=== PATIENT | male | born 1950 | race Caucasian/White ===

== ENCOUNTER → 2022-09-12 14:01 | Outpatient (REF) | payer MEDICARE, SELFPAY ==
--- NOTE | 2022-09-12 14:11 | CA_ITS ---
Transthoracic Echocardiogram Patient (Last, First, Middle): Parminder Man, Gender: Male Date of : 1950 Age: 71 Procedure Date: 09/12/2022 Procedure Type: Transthoracic Echocardiogram Location: OP Height: 180.34 cm Weight: 127.01 kg BSA: 2.43 m2 Heart Rate: bpm BP: 134 / 84 mmHg Strategy Planning Consultant: Referring MD: Adid Main MD Symptoms: I10 PRIMARY HTN Study Quality: Fair ECG Rhythm: Sinus Conclusions: - Normal left ventricular size and systolic function. There is severely increased left ventricular wall thickness. The visually estimated ejection fraction is between 55-60%. - Normal right ventricular cavity size and systolic function. 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 Findings Left Ventricle Normal left ventricular size and systolic function. There is severely increased left ventricular wall thickness. The visually estimated ejection fraction is between 55-60%. There is no evidence of regional wall motion abnormalities. Diastolic function is normal for age. Right Ventricle Normal right ventricular cavity size and systolic function. Atria Both atria are normal in size. Aortic Valve There is mild calcification of the aortic valve. There is mild aortic valve stenosis. There is no aortic valve regurgitation. Mitral Valve The mitral valve appears normal. There is no mitral valve regurgitation. There is no mitral valve stenosis. Pulmonic Valve The pulmonic valve is likely normal. Tricuspid Valve Normal tricuspid valve structure. There is trace tricuspid valve regurgitation. Normal right atrial pressure. There is no evidence of pulmonary hypertension. Great Vessels There is mild dilatation of the ascending aorta measuring 4.00 cm. The visualized portions of the pulmonary artery and branches are normal. Venous The inferior vena cava is normal in size and collapses greater than 50% with inspiration. Pericardium/Pleural There is no evidence of pericardial effusion. Prior Study Comparison No prior study available for comparison. Measurements 2D Linear Measurements IVSd: 2.02 0.6-0.9/0.6-1.0 cm LVIDd: 5.09 3.9-5.3/4.2-5.9 cm LVIDd Index: 2.09 2.4-3.2/2.2-3.1 cm/m2 LVIDs: 3.25 2.0-3.6 cm LVPWd: 2.08 0.7-1.1 cm Ao Root: 3.90 2.1-3.5 cm LA Diam: 3.00 2.7-3.8/3.0-4.0 cm LAIDs Index: 1.23 1.5-2.3 cm/m2 LV Mass: 670.05 67-162/88-224 g LV Mass Index: 275.74 43-95/49-115 g/m2 LVOT Diam: 2.30 3.0+(-)1.3 cm Mitral Valve MV Pk E: 0.49 MV PK A: 1.01 MV Decel Time: 142.00 E/A: 0.50 E'Lateral: 4.24 E'Medial: 5.33 E/E' Med: 9.20 E/E' Lat: 11.60 PHT: 42.00 MVA PHT: 5.24 Decel Laurel: 3.46 Aortic Valve AoV Pk Stepan: 2.77 AoV Mn Stepan: 1.74 AoV VTI: 0.52 AoV Pk Grad: 31.00 Aov Mn Grad: 15.00 MARGARITA Cont.VTI: 1.40 LVOT LVOT Pk Stepan: 0.88 LVOT Mn Stepan: 0.61 LVOT VTI: 0.18 LVOT Pk Grad: 3.00 LVOT Mn Grad: 2.00 LVOT Diam: 2.30 LVOT Area: 4.15 Diastolic Function MV Pk E: 0.49 MV Pk A: 1.01 E/A: 0.50 E'Medial: 5.33 E/E' Med: 9.20 E' Laterial: 4.24 E/E' Lat: 11.60 Right Ventricle TAPSE (mm): 25.00 TVS' Stepan: 16.00 Tricuspid Valve TR Pk Stepan: 2.25 TR Pk Grad: 20.00 RA Press: 3.00 RVSP: 23.00 Great Vessels Aorta Ao Root-2D: 3.90 2.0-3.7 cm Ao Asc: 4.00 2.1-3.4 cm Pulmonary Valve PV Pk Stepan: 1.02 Peak PV Grad: 4.00 Updated in Other Vendor System with Status of Final Jalen Dubose MD electronically signed on 09/14/2022 12:15:39 AM with status of Final
== END ==
LOC: HO.CARD 14:01
PROVIDERS: PCP Family Medicine; Visit Provider Internal Medicine Cardiovascular Disease
DX: I10 Essential (primary) hypertension (principal)
CPT/HCPCS: 93306